=== PATIENT | male | born 1975 | race American Indian/Alaskan Native ===

== ENCOUNTER 2018-09-23 22:58 | Emergency (ER) | payer MEDICARE, SELFPAY ==
[2018-09-23 22:59] VITALS: BMI 30.2
[2018-09-23 23:37] VITALS: BP 148/87; PULSE 70; RESP 14; TEMP 98.4; O2SAT 98
--- NOTE | 2018-09-24 00:04 | C.PDOC ---
History Of Present Illness 43 year old male presents after being given wrong medication at 11am. Denies any complaints at this time. Chief Complaint (Nursing): Medical Clearance History Per: Patient History/Exam Limitations: no limitations Onset/Duration Of Symptoms: Hrs Recent travel outside of the [place]: No Past Medical History Reviewed: Historical Data, Nursing Documentation, Vital Signs Vital Signs: Last Vital Signs Temp 98.4 F 09/23/18 23:30 Pulse 70 09/23/18 23:30 Resp 14 09/23/18 23:30 BP 148/87 09/23/18 23:30 Pulse Ox 98 09/23/18 23:30 Primary Care Provider: Non [facility] Provider, - Medical History PMH: Asthma, Bipolar Disorder, Depression, HTN, Schizophrenia Denies: Chronic Kidney Disease - [facility] Procedures CLOSED ENDOSCOPIC BIOPSY OF LARGE INTESTINE (08/25/13) ENDO EXCISION/DEST OF LESION OR TISSUE OF STOMACH (08/25/13) ENDOSC POLYPECTOMY OF LG INTEST (08/25/13) ESOPHAGOGASTRODUODENOSCOPY [EGD] W/CLOSED BIOPSY (08/25/13) INDIVID PSYCHOTHERAP NEC (11/11/12) OTHER GROUP THERAPY (10/05/13) PSYCHIAT DRUG THERAP NEC (11/11/12) VACCINATION NEC (10/05/13) Family History: States: Unknown Family Hx - Social History Hx Tobacco Use: No Hx Alcohol Use: No Hx Substance Use: No - Immunization History Hx Tetanus Toxoid Vaccination: No Hx Influenza Vaccination: Yes Hx Pneumococcal Vaccination: No Review Of Systems Constitutional: Negative for: Fever, Chills Cardiovascular: Negative for: Chest Pain, Palpitations Respiratory: Negative for: Cough, Shortness of Breath Gastrointestinal: Negative for: Nausea, Vomiting Neurological: Negative for: Weakness, Numbness Physical Exam - Physical Exam Appears: Non-toxic Skin: Normal Color, Warm Head: Atraumatic, Normacephalic Oral Mucosa: Moist Chest: Symmetrical, No Tenderness Cardiovascular: Rhythm Regular Respiratory: Normal Breath Sounds, No Rales, No Rhonchi, No Wheezing Gastrointestinal/Abdominal: Soft, No Tenderness Extremity: Normal ROM (x4) Neurological/Psych: Oriented x3, Normal Speech Gait: Steady ED Course And Treatment O2 Sat by Pulse Oximetry: 98 (Room air) Pulse Ox Interpretation: Normal Disposition Counseled Patient/Family Regarding: Diagnosis - Disposition Referrals: [facility] [Outside] Disposition: HOME/ ROUTINE Disposition Time: 00:02 Condition: STABLE Instructions: Low Salt Diet, Medicines for High Blood Pressure Forms: [facility] (Persian) - POA Present On Arrival: None - Clinical Impression Clinical Impression: Medical assessment, Normal physical examination - Scribe Statement The provider has reviewed the documentation as recorded by the Scribe Fran Mark All medical record entries made by the Scribe were at my direction and personally dictated by me. I have reviewed the chart and agree that the record accurately reflects my personal performance of the history, physical exam, medical decision making, and the department course for this patient. I have also personally directed, reviewed, and agree with the discharge instructions and disposition.
== END 2018-09-24 00:35 | disposition home or self-care (01) ==
LOC: C.ER 22:58
DX: Z00.00 Encounter for general adult medical examination without abnormal findings (principal)